=== PATIENT | male | born 1945 | race Caucasian/White ===

== ENCOUNTER 2016-06-02 14:53 | Emergency (ER) | payer MEDICARE ==
--- NOTE | 2016-06-14 21:14 | ER ---
ADMIT: 06/02/2016 RM/LOC: ER [facility] MR#: [id number] [address] [id number] [address] [place] [address] Emergency Room Report SEX: M AGE: 70 : 1945 DATE: 06/02/2016 ADDENDUM: CHIEF COMPLAINT: Cough and shortness of breath. HISTORY OF PRESENT ILLNESS: This is a 70-year-old who has a history of lung cancer. He has been in remission since fall. He has had this cough for about a week. He has had increased shortness of breath. He has been under lot of stress because his is at [facility] critically ill for the last 3 weeks[address] He did see Dr. Wong, she placed him on Levaquin on Monday. He says he just does not feel like he is getting better, so came into the ER. Told him to continue the Levaquin. He believes that he has 5 doses left, he is going to take and also adding prednisone, doing a tapering dose, and then having him restart his 10 mg daily. CLINICAL IMPRESSION: Chronic obstructive pulmonary disease exacerbation. PATRICA Denny / Alex Dunn MD / modl JOB #: [id number] CC: Alex Dunn MD, Attending Physician
== END 2016-06-02 17:40 | disposition home or self-care (01) ==
LOC: ER 14:53
DX: J44.1 Chronic obstructive pulmonary disease with (acute) exacerbation (principal)

== ENCOUNTER → 2016-07-30 | Outpatient (CLI) | payer MEDICARE | END | disposition home or self-care (01) | LOC: RAD.S 10:29 | DX: C78.00 Secondary malignant neoplasm of unspecified lung (principal); K80.20 Calculus of gallbladder without cholecystitis without obstruction; R16.0 Hepatomegaly, not elsewhere classified; N40.0 Benign prostatic hyperplasia without lower urinary tract symptoms; I31.3 Pericardial effusion (noninflammatory) ==

== ENCOUNTER 2016-08-15 07:29 | Day surgery (SDC) | payer MEDICARE ==
[~2016-08-15] VITALS: Ht 184.2 cm; Wt 81.4 kg
== END 2016-08-15 12:06 | disposition home or self-care (01) ==
LOC: RAD.S 07:29
PROC: 0FB03ZX Excision of Liver, Percutaneous Approach, Diagnostic (ICD-10-PCS; principal; 2016-08-15)
DX: C22.7 Other specified carcinomas of liver (principal); C34.90 Malignant neoplasm of unspecified part of unspecified bronchus or lung; Z79.82 Long term (current) use of aspirin; Z79.899 Other long term (current) drug therapy; Z79.52 Long term (current) use of systemic steroids